=== PATIENT | male | born 2000 | race Caucasian/White ===

== ENCOUNTER 2021-01-27 18:06 | Emergency (ER) | payer OTHER ==
[2021-01-27] MEDS ORDERED: TETANUS & DIPHTHERIA TOX,ADULT 0.5 ML VIAL ONE (19:28)
--- NOTE | 2021-01-27 20:15 | RAD REPORT ---
EXAM DESCRIPTION: CT - Head Brain Wo Cont - 01/27/2021 7:50 pm CLINICAL HISTORY: Headache COMPARISON: None TECHNIQUE: Computed axial tomography of the head was obtained. IV contrast was not requested. All CT scans are performed using dose optimization technique as appropriate and may include automated exposure control or mA/KV adjustment according to patient size. FINDINGS: An intracranial bleed is not seen . The ventricles are normal in caliber. No extra-axial fluid collection is noted. Mild to moderate low-density areas within periventricular, deep and subcortical white matter likely r epresent ischemic changes secondary to small vessel disease. Fluid within the sinuses/ mastoids is not seen. IMPRESSION: No acute intracranial abnormality is seen. If patient's symptoms persist MRI of the bra in would be recommended.
[2021-01-27] MEDS ORDERED: KETOROLAC 30 MG/ML INJ ONE (20:20)
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
[2021-01-27 23:39] VITALS: TEMP 98.7; O2SAT 99
[2021-01-27 23:42] VITALS: BP 120/82
== END 2021-01-27 21:06 | disposition home or self-care (01) ==
LOC: ER 18:06
PROC: 0HQ0XZZ Repair Scalp Skin, External Approach (ICD-10-PCS; principal; 2021-01-27)
DX: S01.01XA Laceration without foreign body of scalp, initial encounter (principal); Z23 Encounter for immunization; W10.9XXA Fall (on) (from) unspecified stairs and steps, initial encounter
CPT/HCPCS: 70450; 90471; 90714; 96372; 99284